=== PATIENT | male | born 1945 | race Caucasian/White ===

== ENCOUNTER 2017-10-18 01:13 | Emergency (ER) | payer MEDICARE ==
[2017-10-18 02:58] LABS: Bilirubin Negative (Negative); Blood, Urine Negative (Negative); Clarity CLOUDY (Clear); Glucose, Urine (Dipstick) Negative (Negative); Leukocyte Negative (Negative); Nitrite Negative (Negative); Protein, Urine (Dipstick) Trace mg/dL (Neg-Trace); Urobilinogen 0.2 mg/dL (0.2-1.0)
[2017-10-18 03:07] LABS: ALT (SGPT) 21 U/L (8-55); AST (SGOT) 19 U/L (5-34); Albumin 4.1 g/dL (3.4-4.8); Alkaline Phosphatase 100 U/L (40-150); Anion Gap 10 mmol/L (10-20); BUN (Urea Nitrogen) 14 mg/dL (8.4-25.7); Bilirubin, Total 0.4 mg/dL (0.2-1.2); Calc. Creatinine Clearance 0 mL/min (70-130); Calcium 9.4 mg/dL (7.8-10.44); Carbon Dioxide 27 mmol/L (23-31); Chloride 102 mmol/L (98-107); Estimated GFR-MDRD 73; Globulin 3.2 g/dL (2.4-3.5); Glucose 128 mg/dL (80-115); Potassium 4.3 mmol/L (3.5-5.1); Protein, Total 7.3 g/dL (5.8-8.1); Sodium 135 mmol/L (136-145)
[2017-10-18 03:08] LABS: #Lymphocytes 1.1 thou/uL (1.20-3.40); #Monocytes 0.8 thou/uL (0.11-0.59); #Neutrophils 9.8 thou/uL (1.40-6.50); %Basophils 0.3 % (0.0-1.0); %Eosinophils 0.4 % (0.0-10.0); %Lymphocytes 9.2 % (21.0-51.0); %Monocytes 6.4 % (0.0-10.0); %Neutrophils 83.7 % (42.0-75.0); Hemoglobin 15.2 g/dL (14.0-18.0); Mean Corpuscular HGB CONC 33.2 g/dL (32.0-36.0); Mean Corpuscular Hemoglobin 28.6 pg (27.0-31.0); Mean Corpuscular Volume 86.1 fl (80.0-94.0); Mean Platelet Volume 8.3 fL (7.4-10.4); Platelet Count 247 thou/uL (130-400); White Blood Cell (WBC) Count 11.7 thou/uL (4.8-10.8)
[2017-10-18 03:12] LABS: CKMB 2.5 ng/mL (0-6.6); Troponin I Less than 0.010 ng/mL (< 0.028)
--- NOTE | 2017-11-14 14:22 | EKG ---
Test Reason : Blood Pressure : / mmHG Vent. Rate : 078 BPM Atrial Rate : 078 BPM P-R Int : 168 ms QRS Dur : 086 ms QT Int : 350 ms P-R-T Axes : 047 009 023 degrees QTc Int : 399 ms Normal sinus rhythm Normal ECG Confirmed by MICHELLE KERNS M.D. ([id number]), photo editor RADHA LUTZ ([id number]) on 11/14/2017 2:21:25 PM Referred By: Confirmed By:MICHELLE KERNS M.D.
== END 2017-10-18 04:19 | disposition home or self-care (01) ==
LOC: ERS 01:13
DX: R11.2 Nausea with vomiting, unspecified (principal); R19.7 Diarrhea, unspecified; I10 Essential (primary) hypertension; F03.90 Unspecified dementia, unspecified severity, without behavioral disturbance, psychotic disturbance, mood disturbance, and anxiety; Z79.899 Other long term (current) drug therapy
CPT/HCPCS: 36415; 80053; 81003; 82553; 84484; 85025; 93005

== ENCOUNTER 2017-10-19 02:28 | Inpatient (IN) | payer MEDICARE ==
[2017-10-19] MEDS ORDERED: Metoclopramide HCl 10 MG/2 ML VIAL ONE (02:43)
[2017-10-19] MEDS ORDERED: diphenhydrAMINE 50 MG/ML VIAL ONE (03:36)
[2017-10-19 03:49] LABS: Hemoglobin 16.6 g/dL (14.0-18.0); Mean Corpuscular HGB CONC 33.6 g/dL (32.0-36.0); Mean Corpuscular Hemoglobin 28.8 pg (27.0-31.0); Mean Corpuscular Volume 85.6 fl (80.0-94.0); Platelet Count 292 thou/uL (130-400); RBC Distribution Width 13.3 % (11.5-14.5); Red Blood Cell (RBC) Count 5.78 mill/uL (4.70-6.10); White Blood Cell (WBC) Count 15.2 thou/uL (4.8-10.8)
[2017-10-19 04:02] LABS: CKMB 5.7 ng/mL (0-6.6); Troponin I 0.017 ng/mL (< 0.028)
[2017-10-19 04:22] LABS: ALT (SGPT) 30 U/L (8-55); AST (SGOT) 26 U/L (5-34); Albumin 4.7 g/dL (3.4-4.8); Alkaline Phosphatase 110 U/L (40-150); Anion Gap 19 mmol/L (10-20); BUN (Urea Nitrogen) 32 mg/dL (8.4-25.7); Band 15 % (5-11); Bilirubin, Total 0.7 mg/dL (0.2-1.2); Calc. Creatinine Clearance 0 mL/min (70-130); Calcium 9.9 mg/dL (7.8-10.44); Carbon Dioxide 22 mmol/L (23-31); Chloride 99 mmol/L (98-107); Estimated GFR-MDRD 32; Globulin 3.8 g/dL (2.4-3.5); Glucose 145 mg/dL (80-115); Lipase 7 U/L (8-78); Lymphocytes 7 % (21-51); MDiff Complete? YES; Magnesium 2.5 mg/dL (1.6-2.6); Monocytes 18 % (0-10); Neutrophil 60 % (42-75); Potassium 4.2 mmol/L (3.5-5.1); Protein, Total 8.5 g/dL (5.8-8.1); Sodium 136 mmol/L (136-145)
[2017-10-19] MEDS ORDERED: Ondansetron HCl/PF 4 MG/2 ML Vial IVP PRN (05:06)
[2017-10-19 05:11] LABS: Bilirubin Small (Negative); Blood, Urine Negative (Negative); Clarity CLEAR (Clear); Glucose, Urine (Dipstick) Negative (Negative); Leukocyte Negative (Negative); Nitrite Negative (Negative); Protein, Urine (Dipstick) 30 mg/dL (Neg-Trace); Urobilinogen 0.2 mg/dL (0.2-1.0); pH, Urine 5.5 (5.0-9.0)
[2017-10-19 05:14] LABS: Bacteria/HPF None Seen HPF (None Seen); Squamous Epithelial 0-3 HPF (0-3); WBC/HPF 0-3 HPF (0-3)
[2017-10-19] MEDS ORDERED: Sodium Chloride 0.9% 1,000 ML IV SCH ×2 (05:15→08:25)
[2017-10-19 05:16] LABS: Pathc Cast-AUWi Flag 6.77 (0-2.49)
[2017-10-19 05:21] LABS: Specific Gravity, Urine 1.055 (1.002-1.036)
[2017-10-19 05:28] LABS: Manual Microscopic Reviewed? No Path Casts Seen
[2017-10-19 07:23] VITALS: BMI 33.3
[2017-10-19] MEDS ORDERED: hydrALAZINE 20 MG/ML VIAL SLOW IVP PRN (08:24)
[2017-10-19] MEDS ORDERED: Lorazepam 2 MG/ML VIAL SLOW IVP PRN (08:24)
[2017-10-19] MEDS: Famotidine/PF 20 mg/2ml Vial SLOW IVP SCH (08:49)
--- NOTE | 2017-10-19 09:15 | RAD ---
ABDOMEN 1 VIEW: COMPARISON: None. HISTORY: Pain. FINDINGS: Nonspecific bowel gas pattern. There is contrast in the bladder. No obvious pneumoperitoneum on the supine projection. Please refer to CT performed earlier on 10/19/17 for further detail. Chronic changes of the lumbar spine are suspected. Prominent fluid-filled loops of small bowel noted on recent CT are difficult to appreciate. There are a few nonspecific air-filled loops of small bow el in the left hemiabdomen. The tip of what is presumed to be a nasogastric tube is identified. IMPRESSION: 1. Nonspecific bowel gas pattern. Prominent fluid-filled loops of small bowel noted on recent CT ar e difficult to appreciate on the current exam. 2. Partially visualized radiodensity which is presumed to be the nasogastric tube. POS: [facility]
--- NOTE | 2017-10-19 09:39 | CT ---
PRELIMINARY REPORT/[facility]/EMERGENCY AFTER HOURS PROCEDURE: EXAM: CT Abdomen and Pelvis With Intravenous Contrast EXAM DATE/TIME: Exam ordered 10/19/2017 3:45 AM CLINICAL HISTORY: 71 years old, male; Pain; Abdominal pain; Generalized TECHNIQUE: Axial computed tomography images of the abdomen and pelvis with intravenous contrast. Coronal reformatted images were created and reviewed. CONTRAST: 100 mL of ISOVU administered intravenously. COMPARISON: No relevant prior studies available. FINDINGS: Lower thorax: There is subpleural atelectasis of the dependent portions of the lungs. ABDOMEN: Liver: There are no focal liver lesions identified. Gallbladder and bile ducts: The gallbladder is normal. There is no evidence of biliary ductal dilatio n. No calcified stones. Pancreas: The pancreas appears normal. No ductal dilation. Spleen: The spleen is normal. Adrenals: The adrenal glands are normal. Kidneys and ureters: The kidneys appear normal. No hydronephrosis. Stomach and bowel: There is dilatation of the small bowel up to 3.5 cm with abrupt collapse in the mi d pelvis consistent with complete small bowel obstruction. The stomach is normal. The colon is normal . No mucosal thickening. Appendix: No findings to suggest acute appendicitis. PELVIS: Bladder: The bladder is normal. Reproductive: The prostate gland and seminal vesicles are normal. ABDOMEN and PELVIS: Intraperitoneal space: Normal. No free air. No significant fluid collection. Bones/joints: There is RIGHT hip arthroplasty. The spine demonstrates moderate degenerative changes a t multiple levels. No acute fracture. No dislocation. Soft tissues: Normal. Vasculature: Normal. No abdominal aortic aneurysm. Lymph nodes: Normal. No enlarged lymph nodes. IMPRESSION: There is dilatation of the small bowel up to 3.5 cm with abrupt collapse in the mid pelvis consistent with complete small bowel obstruction. Thank you for allowing us to participate in the care of your patient. Dictated and Authenticated by: Julio Cesar Faustin MD 10/19/2017 4:39 AM Central Time ([place] & [place]) FINAL REPORT CT ABDOMEN AND PELVIS WITH IV CONTRAST: I agree with the preliminary report given by Dr. Julio Cesar Faustin of [facility]. POS: [facility]
[2017-10-19] MEDS ORDERED: ISOVUE-370 76%-LOCM 1 ML ONE (13:19)
--- NOTE | 2017-10-19 13:36 | CON ---
DATE OF CONSULTATION: 10/19/2017 REQUESTING PHYSICIAN: Nancie Lee M.D. HISTORY OF PRESENT ILLNESS: This is a 71-year-old man who presented with insidious onset m ultiple episodes of nausea and large volume emesis. This started 2 days ago. At onset, the patient had both emesis and loose bowel movement. This was then followed by multiple recurrent episodes of nausea and emesis. The patient had some vague abdominal pain, which was transient in nature. He denied any fevers or chills. He was evaluated in the Emergency Department with a CT scan of the abdomen and pelvis, which was sugg estive of a complete small-bowel obstruction. The patient was referred to General Surgery Service. At the time of my evaluation, the patient is awake and alert. A nasogastric tube was placed on this admission and has returned less than 500 mL of bilious effluent . PAST MEDICAL HISTORY: Pertinent for plasmacytoma and bladder carcinoma for which patient received ra diation therapies at various times. Other pertinent past medical history includes essential hypertension and senile dementia of Alzheimer 's type. SURGICAL HISTORY: Pertinent for right hip arthroplasty and previous cystoscopy. SOCIAL HISTORY: The patient is and lives at home with his . 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 The patient admits to occasional intake of ethanol in very moderate amount. He denies any cigarette smoking or illicit drug abuse. FAMILY HISTORY: Noncontributory for this patient's age. PRE-HOSPITALISATION MEDICATIONS: Include vitamin B12 1000 mcg p.o. daily, amlodipine 10 mg p.o. terrie y, donepezil 10 mg p.o. q.p.m., folic acid 1 mg p.o. daily and Namenda 10 mg p.o. b.i.d. ALLERGIES: The patient denies any known drug allergies. REVIEW OF SYSTEMS: Ten-point review of systems essentially unremarkable except for as stated in past medical history and chief complaint. PHYSICAL EXAMINATION: GENERAL: Reveals a 71-year-old normally developed man who is otherwise interactive and appears to be in no acute distress. VITAL SIGNS: Includes blood pressure 126/85, pulse 76, respiration rate 18, temperature 98.1 degrees Fahrenheit and oxygen saturation 98% on room air. HEENT: Reveals normocephalic and atraumatic. Pupils are equal, round, and reactive to light and acc ommodation. Extraocular muscles are intact bilaterally. No sclerae icterus is present. HEART: Reveals regular rate and rhythm. No murmurs or gallops auscultated. LUNGS: Clear to auscultation bilaterally. Breathing regular and unlabored. ABDOMEN: Soft, nontender and nondistended. Bowel sounds in all four quadrants appear normoactive. Liver and spleen are nonpalpable below costal margins. EXTREMITIES: Reveals 2+ radial and pedal pulses bilaterally. No ankle edema is present. NEUROLOGIC: Reveals no focal deficits present. PERTINENT LABORATORY FINDINGS: Includes CBC today with 15,200 white blood cells, hemoglobin 16.6, he matocrit is 49.5 and platelet count is 292,000. Differential counts as follows, 60% segmented neutrophils, 15 bands, 7 lymphocytes and 18 monocytes. Metabolic profile: Sodium 136, potassium is 4.2, chloride is 99, bicarbonate is 22, BUN is 32, creat inine is 2.08, glucose is 145, magnesium is 2.5, total bilirubin is 0.7, AST and ALT normal at 26 and 30 respectively. Serum lipase is 7. IMAGING DATA: I did review the CT scan of the abdomen and pelvis, which revealed multiple distended loops of small bowel. There is gas in the colon and rectum. IMPRESSION: Acute partial small-bowel obstruction versus adynamic ileus secondary to gastroenteritis . PLAN: 1. Continue nasogastric tube decompression with bowel rest. 2. We will initiate acute small bowel follow through to define the anatomy of the obstruction if pre sent. 3. There is no acute surgical indication for this patient at this time. 4. General Surgery will follow along and make further recommendations as necessary. Above findings and plan discussed with the patient and his at bedside. They both indicated understanding of information given. I answered their questions. Thank you again, Dr. Canada for allowing me the opportunity to participate in the care of this patie nt.
--- NOTE | 2017-10-19 14:12 | RAD ---
SMALL BOWEL FOLLOW-THROUGH: INDICATIONS: Concern for small bowel obstruction. FINDINGS: There is Gastrografin contrast seen filling loops of small bowel, which are not dilated. Contrast op acification is seen within the right hemicolon by the 20-minute to 30-minute time som. A small dive rticula is seen off the third part stage of the duodenum. IMPRESSION: No small bowel obstruction demonstrated. POS: [facility]
[2017-10-19] MEDS: Dextrose 5 %-0.45 % NaCl 1,000 ML IV SCH (17:51)
--- NOTE | 2017-10-19 18:59 | HP ---
PRIMARY CARE PHYSICIAN: None. PRESENTING COMPLAINT: Vomiting. HISTORY OF PRESENT ILLNESS: Mr. Jay Fortune is a 71-year-old male with a past medical history of plasmacytoma, hypertension, dementia, who presented to the emergency room with a 2-day history of vomiting. He reports multiple episodes that with dark, foul smelling odor, it was nonbloody. He also reports inability to pass gas and has had no bowel movements in this time. This has been associated with generalized weakness and a constant epigastric abdominal pain rated 5/10, it does not radiate and occurs during his vomiting episodes. He has no hematochezia. No hematemesis. There is no diarrhea or constipation. There is no fever or chills. He denies chest pain, shortness of breath, PND, orthopnea, palpitations or lower extremity edema. PAST MEDICAL HISTORY: Hypertension, plasmacytoma, and dementia. PAST SURGICAL HISTORY: Right hip replacement. FAMILY HISTORY: Reviewed and noncontributory. SOCIAL HISTORY: , does not smoke or drink alcohol or use illicit drugs. ALLERGIES: None. REVIEW OF SYSTEMS: GENERAL: Negative. HEENT: Negative. RESPIRATORY: Negative. CARDIOVASCULAR: Negative for chest pain, shortness of breath. ABDOMEN: Per HPI. MUSCULOSKELETAL: Negative. SKIN: Negative. ALLERGY/IMMUNOLOGY: Negative. PSYCHIATRIC: Negative. NEUROLOGY: Negative. HEMATOLOGIC: Negative. MUSCULOSKELETAL: Negative. PHYSICAL EXAMINATION: VITAL SIGNS: Stable. GENERAL: Not in acute distress, sitting comfortably in bed. HEENT: Normocephalic, atraumatic. NG tube in place. NECK: Supple, EOMI, PERRLA. Dry mucous membranes. RESPIRATORY: Vesicular breath sounds present bilaterally. No wheezes or rales. CARDIOVASCULAR: S1 and S2 only. No murmurs, rubs or gallops. SKIN: Warm and well-perfused. No rashes or lesions. ABDOMEN: Bowel sounds hypoactive, not distended, not tender. No organomegaly. MUSCULOSKELETAL: Moves all extremities spontaneously. No skeletal abnormalities. NEUROLOGIC: Alert and oriented to time and place. No focal deficits. PSYCHIATRIC: Normal mood and affect. LABORATORY DATA: Significant for leukocytosis (15,000). Chemistry significant for elevated BUN/creatinine of 32/2.08. Troponin x1 less than 0.017. IMAGING: CT abdomen/pelvis, this revealed dilatation of the small bowel up to 3.5 cm with abrupt collapse in the mid pelvis consistent with complete small- bowel obstruction. Abdomen x-ray showed nonspecific bowel gas pattern with prominent fluid-filled loops of small bowel noted on CT, difficult to appreciate on current exam. Follow up small bowel x-ray with contrast showed no small-bowel obstruction demonstrated. ASSESSMENT AND PLAN: 1. Vomiting ongoing concerning for possible small-bowel obstruction. He is currently n.p.o., has been started on IV fluids and General Surgery consulted. An NG tube has also been placed. We will follow surgical recommendations. 2. Hypertension, relatively well controlled. Since patient is n.p.o., we will place patient on p.r.n. medications for systolic blood pressure greater than 180. 3. Acute kidney injury, likely prerenal acute kidney injury due to volume depletion (the patient has had multiple vomiting episodes). We will hydrate and monitor creatinine. 4. Leukocytosis. This is likely from his possible small-bowel obstruction likely from an ongoing infection. We will hydrate and recheck WBC in the morning. 5. Dementia: Continue home meds. CODE STATUS: FULL resuscitation. PROPHYLAXIS: Heparin. MTDD
--- NOTE | 2017-10-19 21:49 | PRG ---
DATE OF SERVICE: 10/19/2017 SUBJECTIVE: This is a 71-year-old gentleman who is seen in consultation by our team earlier today fo r concerns for small bowel obstruction. He had a small bowel follow through, which was negative for obstructive lesion. Since that time, the patient has had multiple bowel movements. He had no furthe r nausea or vomiting. His NG tube was removed and he was started on clear liquid diet. Upon my eval uation, the patient vocalized no complaint. He is tolerating his diet at this time. OBJECTIVE: VITAL SIGNS: Reviewed and stable. GENERAL: The patient is sitting in chair out of bed. LUNGS: Breathing is nonlabored. ABDOMEN: Soft, nontender, nondistended. NG tube has been removed. ASSESSMENT AND PLAN: As documented in consultation note. Continue care as ordered. Continue to mon itor. The patient continues to tolerate clear liquid diet. We will advance to full liquids and adva nce to tolerate that for tomorrow.
[2017-10-20] MEDS: Dextrose 5 %-0.45 % NaCl 1,000 ML IV SCH (05:26)
[2017-10-20 05:37] LABS: Band 4 % (5-11); Eosinophils 2 % (0-10); Hemoglobin 13.3 g/dL (14.0-18.0); Lymphocytes 22 % (21-51); MDiff Complete? YES; Mean Corpuscular HGB CONC 32.8 g/dL (32.0-36.0); Mean Corpuscular Hemoglobin 28.3 pg (27.0-31.0); Mean Corpuscular Volume 86.1 fl (80.0-94.0); Mean Platelet Volume 8.2 fL (7.4-10.4); Monocytes 14 % (0-10); Neutrophil 58 % (42-75); Platelet Count 218 thou/uL (130-400); RBC Distribution Width 13.3 % (11.5-14.5); Red Blood Cell (RBC) Count 4.71 mill/uL (4.70-6.10); White Blood Cell (WBC) Count 7.3 thou/uL (4.8-10.8)
[2017-10-20 06:17] LABS: Anion Gap 7 mmol/L (10-20); BUN (Urea Nitrogen) 27 mg/dL (8.4-25.7); Calc. Creatinine Clearance 107 mL/min (70-130); Calcium 8.4 mg/dL (7.8-10.44); Carbon Dioxide 27 mmol/L (23-31); Chloride 104 mmol/L (98-107); Estimated GFR-MDRD 73; Glucose 104 mg/dL (80-115); Potassium 3.4 mmol/L (3.5-5.1); Sodium 135 mmol/L (136-145)
[2017-10-20] MEDS ORDERED: Potassium Chloride 20 MEQ TAB PO SCH (08:30)
[2017-10-20] MEDS: Famotidine/PF 20 mg/2ml Vial SLOW IVP SCH (08:39)
[2017-10-20] MEDS ORDERED: Acetaminophen 325 MG TAB PO PRN (10:20)
[2017-10-20 11:47] VITALS: BP 126/85; TEMP 98.3
--- NOTE | 2017-10-20 16:45 | DIS ---
DATE OF ADMISSION: 10/19/2017 DATE OF DISCHARGE: 10/20/2017. DISCHARGE DIAGNOSES: Vomiting, hypertension, acute kidney injury, leukocytosis, dementia. SECONDARY DIAGNOSES: Hypertension, acute kidney injury, leukocytosis, dementia. HISTORY OF PRESENT ILLNESS AND HOSPITAL COURSE: Mr. Jay Fortune is a 71-year-old male with a his tory of plasmacytoma, hypertension, dementia, who presented to the emergency room with a 2-day histor y of vomiting. He reported multiple episodes with dark foul smelling odor, nonbloody. He also was u nable to pass gas and has had normal bowel movement for 2 days. It was associated with generalized w eakness and constant epigastric pain rated 5/10, did not radiate and no cause during vomiting episode s. No hematochezia or hematemesis. No diarrhea or constipation. No fevers or chills. No chest misty n, shortness of breath, PND, orthopnea, palpitations, lower extremity edema. His labs were largely u nremarkable and he had a CT abdomen, which showed and suggested possible obstruction with dilatation of small-bowel up to 3.5 cm and abrupt collapse in the mid pelvis consistent with small-bowel obstruc tion, complete. General Surgery was consulted. He was started with a nasogastric tube insertion and made n.p.o. with IV fluids for parenteral nutrition. General Surgery was consulted. On review of h im, he had abdominal series with follow through, which was negative for obstruction. The NG tube was then removed. His diet was advanced slowly and he was started on his home medications. On the day of discharge, he felt well and was able to tolerate diet. He had had a few bowel movements as well. He was then deemed stable for discharge. DISCHARGE MEDICATIONS: Donepezil 10 mg every evening, amlodipine 10 mg daily, acetaminophen 650 mg e very 4 hours as needed for pain, folic acid 1 mg daily, memantine 10 mg twice a day, cyanocobalamin 1 000 mg daily. PHYSICAL EXAMINATION: He was examined on the day of discharge, his vital signs were stable. CONSTITUTIONAL: Not in acute distress, lying comfortably in bed. HEENT: Normocephalic, atraumatic. NG tube has been removed and patient is comfortable. NECK: Supple, EOMI, PERRLA. Moist mucous membranes. RESPIRATORY: Vesicular breath sounds bilaterally. No wheezes or rales. CARDIOVASCULAR: S1, S2 only. No murmurs, rubs or gallops. SKIN: Warm, dry, well perfused. No rashes or lesions. ABDOMEN: Bowel sounds present, nontender, nondistended, no organomegaly. MUSCULOSKELETAL: Moves all extremities spontaneously. No abnormalities. NEUROLOGIC: Alert and oriented to person and place. No focal deficits. PSYCHIATRIC: Normal mood and affect. LABORATORY DATA: WBC 7.3, hemoglobin 13.3, platelet 218. Sodium 135, potassium 3.4, chloride 104, c arbon dioxide 27, anion gap 7, BUN 27, creatinine 101. IMAGING: CT abdomen results as above. Abdominal series negative for obstruction. Consult General S urgery CONDITION AT DISCHARGE: Stable and improved. PROCEDURES: None. DIET: Heart healthy. CARE GOALS. He is to follow up with his primary care physician within 1 week of discharge. ACTIVITY: To resume as tolerated. DISCHARGE TIME: 65 minutes including chart review and documentation.
--- NOTE | 2017-10-20 16:51 | PRG ---
DATE OF SERVICE: 10/20/2017 SUBJECTIVE: Mr. Fortune seen at bedside with his . The patient denies any abdominal pain. He is tolerating clear liquid diet and is having multiple loose bowel movements. Denies any fevers or c hills. OBJECTIVE: VITAL SIGNS: Today includes blood pressure 126/85, pulse 73, respiratory rate 20, temperature 98.3 d egrees Fahrenheit, and oxygen saturation 94% on room air. HEENT: Reveals normocephalic and atraumatic. HEART: Reveals regular rate and rhythm, no murmurs or gallops auscultated. LUNGS: Clear to auscultation bilaterally. Breathing regular and unlabored. ABDOMEN: Soft, nontender and nondistended. Bowel sounds in all four quadrants appear normoactive. NEUROLOGIC: Reveals no focal deficits present. LABORATORY STUDIES: Includes a CBC with 7300 white blood cells, hemoglobin and hematocrit stable at 13.3 and 40.6 respectively. Platelet count 218,000. Metabolic profile: Sodium is 135, potassium is 3.4, chloride is 104, bicarbonate is 27, BUN is 27, creatinine is 1.01 and glucose is 104. IMPRESSION: Resolved acute small-bowel obstruction. PLAN: There remains no acute surgical indication for this patient at this time. Diet will be advanced to a general and the patient could be discharged from Surgery standpoint if irish erating a regular diet. He requires no further followup from this Surgery Service.
[2017-10-20] MEDS ORDERED: Donepezil HCl 10 MG TAB PO SCH (21:00)
[2017-10-21] MEDS ORDERED: Potassium Chloride 20 MEQ TAB PO SCH (08:00)
[2017-10-21] MEDS ORDERED: Amlodipine 5 MG TAB PO SCH (09:00)
[2017-10-21] MEDS ORDERED: Amlodipine 10 MG TAB PO SCH (09:00)
[2017-10-21] MEDS ORDERED: Cyanocobalamin (Vitamin B-12) 1,000 MCG TAB PO SCH (09:00)
[2017-10-21] MEDS ORDERED: Folic Acid 1 MG TAB PO SCH (09:00)
== END 2017-10-20 15:15 | disposition home or self-care (01) | DRG 684 ==
LOC: ERS 02:28 → T4-A 05:04
PROVIDERS: ADMIT Hospitalist; ATTEND Hospitalist
DX: N17.9 Acute kidney failure, unspecified (principal); G30.1 Alzheimer's disease with late onset; E86.9 Volume depletion, unspecified; F02.80 Dementia in other diseases classified elsewhere, unspecified severity, without behavioral disturbance, psychotic disturbance, mood disturbance, and anxiety; R11.2 Nausea with vomiting, unspecified; I10 Essential (primary) hypertension; D72.829 Elevated white blood cell count, unspecified; Z85.51 Personal history of malignant neoplasm of bladder; Z85.79 Personal history of other malignant neoplasms of lymphoid, hematopoietic and related tissues; K52.9 Noninfective gastroenteritis and colitis, unspecified
CPT/HCPCS: 36415; 74018; 74177; 74250; 80048; 80053; 81003; 81015; 82553; 83690; 83735; 84484; 85025; 93005; 96360; 96361; 96374; 96375; J1200; J2765; S0028

== ENCOUNTER 2018-03-05 12:09 | Outpatient (CLI) | payer MEDICARE ==
--- NOTE | 2018-03-05 12:48 | CT ---
CT HEAD WITHOUT CONTRAST: Multiple axial tomograms are obtained through the head without IV enhancement. HISTORY: Dementia. Headache. COMPARISON: Comparison is made to a prior head CT dated March 2014. FINDINGS: A mild amount of cortical atrophy is again noted. The ventricles have normal size and position. No evidence of mass or edema. No evidence of infarct. No significant white matter abnormality. No sig nificant interval change. Sinuses and mastoids are well aerated. IMPRESSION: Mild cortical atrophy. Exam otherwise unremarkable and unchanged. POS: [facility]
== END 2018-03-05 12:10 | disposition home or self-care (01) ==
LOC: CT 12:09
PROVIDERS: ATTEND Family Medicine
DX: F03.90 Unspecified dementia, unspecified severity, without behavioral disturbance, psychotic disturbance, mood disturbance, and anxiety (principal); R51 Headache; G31.9 Degenerative disease of nervous system, unspecified
CPT/HCPCS: 36415; 70450; 80053; 85025

== ENCOUNTER 2020-07-13 08:55 | Emergency (ER) | payer MEDICARE, MEDICAID ==
--- NOTE | 2020-07-13 09:56 | CT ---
Exam: CT cervical spine without contrast HISTORY: Trauma. Pain. COMPARISON: 04/17/2020 FINDINGS: No craniocervical dissociation. Appropriate alignment of the lateral masses of C1 and C2. Intact odon toid process Appropriate alignment of the facets. Stable bridging anterior osteophyte at C3 3-C4. Stable vacuum disc phenomenon at C3 5-C6 and C6-7. Soft tissue neck structures: No mass, lymphadenopathy or hematoma. No prevertebral soft tissue swelli ng. Upper mediastinum and lung apices: Unremarkable Central spinal canal: Varying degrees of central canal stenosis and foraminal narrowing on the basis of degenerative change Vertebral bodies: Cervical spine vertebral body height is maintained. No fracture. IMPRESSION: 1. No fracture 2. Stable multilevel degenerative changes of the cervical spine.
--- NOTE | 2020-07-13 09:59 | CT ---
CT BRAIN WITHOUT CONTRAST: HISTORY: Trauma. Fall. Severe Alzheimer's dementia. COMPARISON: 04/17/2020. FINDINGS: Changes of cortical atrophy are again seen. The ventricular size is stable and the basilar cisterns patent. No evidence of acute infarct, hemorrhage, midline shift, or abnormal extraaxial fluid collec tions is seen. The bony calvarium is intact. The visualized paranasal sinuses and mastoid air cells are well aerated. IMPRESSION: No CT evidence of acute intracranial process. POS: [facility]
== END 2020-07-13 12:31 | disposition home or self-care (01) ==
LOC: ERS 08:55
DX: U07.1 COVID-19 (principal); S06.0X9A Concussion with loss of consciousness of unspecified duration, initial encounter; I10 Essential (primary) hypertension; G30.9 Alzheimer's disease, unspecified; F02.80 Dementia in other diseases classified elsewhere, unspecified severity, without behavioral disturbance, psychotic disturbance, mood disturbance, and anxiety; Z79.899 Other long term (current) drug therapy; W18.30XA Fall on same level, unspecified, initial encounter; Y92.129 Unspecified place in nursing home as the place of occurrence of the external cause
CPT/HCPCS: 70450; 72125

== ENCOUNTER 2020-08-09 19:51 | Emergency (ER) | payer MEDICARE, MEDICAID ==
[2020-08-09 20:53] LABS: Bacteria/HPF None Seen HPF (None Seen); Bilirubin Negative (Negative); Blood, Urine Negative (Negative); Clarity Clear (Clear); Glucose, Urine (Dipstick) Normal (Negative); Ketone, Urine Negative (Negative); Leukocyte Negative Leu/uL (Negative); Mucous/LPF Rare LPF (<2+); Nitrite Negative (Negative); Protein, Urine (Dipstick) 50 mg/dL (Neg-Trace); Specific Gravity, Urine 1.035 (1.002-1.036); Squamous Epithelial None Seen HPF (0-3); Urobilinogen 6 mg/dL (Less than 2); WBC/HPF 0-3 HPF (0-3)
--- NOTE | 2020-08-09 20:55 | CT ---
CT OF CERVICAL SPINE PERFORMED WITHOUT CONTRAST ENHANCEMENT: 08/09/20 HISTORY: Fall with neck injury. FINDINGS/IMPRESSION: The vertebral bodies are normal in height. Disc narrowing is seen at the C3-4, C5-6 and C6-7 levels. There are prominent degenerative facet changes. The facets are in normal alignment. There is bony fus ion at the C3-4 level. There is no significant foraminal stenosis. Mild right sided foraminal narrowi ng at the C5-6 level and more pronounced left sided foraminal narrowing. Also moderately severe left sided foraminal narrowing at C6-7. There is no CT evidence for fracture. The lung apices are clear. POS: [facility]
[2020-08-09 20:58] LABS: RBC/HPF 0-3 HPF (0-3)
--- NOTE | 2020-08-09 21:44 | CT ---
CT OF BRAIN PERFORMED WITHOUT CONTRAST ENHANCEMENT: 08/09/20 HISTORY: Fall with head injury. COMPARISON: 07/13/20 exam. There is marked atrophy present. There is no signs of intracerebral hemorrhage or extra-axial fluid c ollections. Mastoid air cells are clear. The visualized sinuses are clear. IMPRESSION: No acute intracranial abnormality. POS: [facility]
[2020-08-09 21:58] LABS: Anion Gap 15 mmol/L (10-20); BUN (Urea Nitrogen) 15 mg/dL (8.4-25.7); Calc. Creatinine Clearance 0 mL/min (70-130); Calcium 8.4 mg/dL (7.8-10.44); Carbon Dioxide 27 mmol/L (23-31); Chloride 100 mmol/L (98-107); Glucose 107 mg/dL (83-110); Potassium 3.7 mmol/L (3.5-5.1); Sodium 138 mmol/L (136-145)
[2020-08-09 22:09] LABS: Eosinophils 1 % (0-10); Hemoglobin 13.5 g/dL (14.0-18.0); Lymphocytes 16 % (21-51); MDiff Complete? YES; Mean Corpuscular HGB CONC 32.8 g/dL (32.0-36.0); Mean Corpuscular Hemoglobin 29.6 pg (27.0-31.0); Mean Corpuscular Volume 90.1 fL (78.0-98.0); Mean Platelet Volume 8.8 fL (7.4-10.4); Monocytes 14 % (0-10); Neutrophil 69 % (42-75); Platelet Count 148 thou/uL (130-400); Platelet Morphology Comment Appears Adequate; Red Blood Cell (RBC) Count 4.56 mill/uL (4.70-6.10); White Blood Cell (WBC) Count 10.6 thou/uL (4.8-10.8)
== END 2020-08-09 23:30 ==
LOC: ERS 19:51
DX: S50.312A Abrasion of left elbow, initial encounter (principal); I10 Essential (primary) hypertension; G30.9 Alzheimer's disease, unspecified; F02.80 Dementia in other diseases classified elsewhere, unspecified severity, without behavioral disturbance, psychotic disturbance, mood disturbance, and anxiety; W06.XXXA Fall from bed, initial encounter
CPT/HCPCS: 36415; 51701; 70450; 72125; 80048; 81003; 81015; 85025; 93005

== ENCOUNTER 2020-08-18 21:45 | Emergency (ER) | payer MEDICARE, MEDICAID ==
[2020-08-18 22:18] LABS: #Basophils 0.1 thou/uL (0.0-0.2); #Eosinphils 0.2 thou/uL (0.0-0.7); #Lymphocytes 1.1 thou/uL (1.20-3.40); #Monocytes 0.7 thou/uL (0.11-0.59); #Neutrophils 4.7 thou/uL (1.40-6.50); %Basophils 0.8 % (0.0-1.0); %Eosinophils 2.4 % (0.0-10.0); %Lymphocytes 16.3 % (21.0-51.0); %Neutrophils 70.5 % (42.0-75.0); Hemoglobin 12.2 g/dL (14.0-18.0); Mean Corpuscular HGB CONC 32.4 g/dL (32.0-36.0); Mean Corpuscular Volume 89.6 fL (78.0-98.0); Mean Platelet Volume 7.3 fL (7.4-10.4); Platelet Count 249 thou/uL (130-400); RBC Distribution Width 12.7 % (11.5-14.5); Red Blood Cell (RBC) Count 4.22 mill/uL (4.70-6.10); White Blood Cell (WBC) Count 6.7 thou/uL (4.8-10.8)
--- NOTE | 2020-08-18 22:27 | RAD ---
EXAM: CHEST ONE VIEW HISTORY: Syncope. COMPARISON: 09/08/2014. FINDINGS: Cardiac silhouette is magnified by projection. Remainder vasculature is within normal limits. Loop re brice device again overlies the left mid chest. Lungs are clear. Degenerative changes are again seen in the spine. IMPRESSION: No acute cardiopulmonary process.
[2020-08-18 22:41] LABS: ALT (SGPT) 40 U/L (8-55); AST (SGOT) 30 U/L (5-34); Albumin 2.9 g/dL (3.4-4.8); Alkaline Phosphatase 89 U/L (40-110); Anion Gap 13 mmol/L (10-20); BUN (Urea Nitrogen) 7 mg/dL (8.4-25.7); Bilirubin, Total 0.3 mg/dL (0.2-1.2); Calc. Creatinine Clearance 0 mL/min (70-130); Calcium 7.9 mg/dL (7.8-10.44); Carbon Dioxide 25 mmol/L (23-31); Chloride 103 mmol/L (98-107); Glucose 120 mg/dL (83-110); Potassium 3.1 mmol/L (3.5-5.1); Protein, Total 5.9 g/dL (5.8-8.1); Sodium 138 mmol/L (136-145)
[2020-08-19 00:24] LABS: Bilirubin Negative (Negative); Blood, Urine Negative (Negative); Clarity Clear (Clear); Glucose, Urine (Dipstick) Normal (Negative); Ketone, Urine Negative (Negative); Leukocyte Negative Leu/uL (Negative); Nitrite Negative (Negative); Protein, Urine (Dipstick) Negative (Neg-Trace); Specific Gravity, Urine 1.012 (1.002-1.036); Urobilinogen 3 mg/dL (Less than 2)
== END 2020-08-19 01:38 ==
LOC: ERS 21:45
DX: R55 Syncope and collapse (principal); I10 Essential (primary) hypertension; Z79.899 Other long term (current) drug therapy
CPT/HCPCS: 36415; 51701; 71045; 80053; 81003; 84484; 85025; 93005

== ENCOUNTER 2020-11-11 11:50 | Inpatient (IN) | payer MEDICARE, MEDICAID ==
[2020-11-11 13:42] LABS: #Basophils 0.1 thou/uL (0.0-0.2); #Eosinphils 0.2 thou/uL (0.0-0.7); #Monocytes 0.8 thou/uL (0.11-0.59); #Neutrophils 6.1 thou/uL (1.40-6.50); %Basophils 0.7 % (0.0-1.0); %Eosinophils 1.9 % (0.0-10.0); %Lymphocytes 12.4 % (21.0-51.0); %Monocytes 9.5 % (0.0-10.0); %Neutrophils 75.5 % (42.0-75.0); Hemoglobin 13.2 g/dL (14.0-18.0); Mean Corpuscular HGB CONC 33.3 g/dL (32.0-36.0); Mean Corpuscular Hemoglobin 30.9 pg (27.0-31.0); Mean Corpuscular Volume 92.7 fL (78.0-98.0); Mean Platelet Volume 8.2 fL (7.4-10.4); Platelet Count 188 thou/uL (130-400); RBC Distribution Width 13.7 % (11.5-14.5); Red Blood Cell (RBC) Count 4.28 mill/uL (4.70-6.10); White Blood Cell (WBC) Count 8.1 thou/uL (4.8-10.8)
[2020-11-11 14:00] LABS: ALT (SGPT) Less than 7 U/L (8-55); AST (SGOT) 12 U/L (5-34); Albumin 3.5 g/dL (3.4-4.8); Alkaline Phosphatase 88 U/L (40-110); Anion Gap 14 mmol/L (10-20); BUN (Urea Nitrogen) 16 mg/dL (8.4-25.7); Bilirubin, Total 0.4 mg/dL (0.2-1.2); Calc. Creatinine Clearance 0 mL/min (70-130); Calcium 8.1 mg/dL (7.8-10.44); Carbon Dioxide 22 mmol/L (23-31); Chloride 106 mmol/L (98-107); Globulin 2.7 g/dL (2.4-3.5); Glucose 91 mg/dL (83-110); Potassium 3.9 mmol/L (3.5-5.1); Protein, Total 6.2 g/dL (5.8-8.1); Sodium 138 mmol/L (136-145)
[2020-11-11 14:03] LABS: Acetaminophen Less than 6.0 mcg/mL (10.0-30.0); Alcohol Less than 10 mg/dL (Less than 10); Salicylate Less than 8.0 mg/dL (15.0-30.0)
[2020-11-11 14:14] LABS: Bacteria/HPF None Seen HPF (None Seen); Bilirubin Negative (Negative); Blood, Urine 1+ (Negative); Clarity Clear (Clear); Glucose, Urine (Dipstick) Normal (Negative); Ketone, Urine Negative (Negative); Leukocyte Negative Leu/uL (Negative); Nitrite Negative (Negative); Protein, Urine (Dipstick) Negative (Neg-Trace); RBC/HPF 21-50 HPF (0-3); Specific Gravity, Urine 1.016 (1.002-1.036); Squamous Epithelial None Seen HPF (0-3); Urobilinogen Normal mg/dL (Less than 2); WBC/HPF 0-3 HPF (0-3); pH, Urine 6.5 (5.0-9.0)
[2020-11-11] MEDS ORDERED: Senokot S 8.6-50 MG TAB PO PRN (15:15)
[2020-11-11] MEDS ORDERED: Acetaminophen 325 MG TAB PO PRN (15:15)
[2020-11-11] MEDS ORDERED: Ondansetron PF 4 MG/2 ML Vial IVP PRN (15:15)
[2020-11-11] MEDS ORDERED: Lorazepam 2 MG/ML VIAL ONE (17:21)
[2020-11-11 18:30] VITALS: BMI 26.8
[2020-11-11] MEDS: Sodium Chloride 0.9% 1,000 ML IV SCH (20:27)
[2020-11-12] MEDS: Sodium Chloride 0.9% 1,000 ML IV SCH ×2 (04:12→18:49)
[2020-11-12 04:48] LABS: Hemoglobin 13.4 g/dL (14.0-18.0); Mean Corpuscular HGB CONC 33.3 g/dL (32.0-36.0); Mean Corpuscular Hemoglobin 30.8 pg (27.0-31.0); Mean Corpuscular Volume 92.3 fL (78.0-98.0); Mean Platelet Volume 8.3 fL (7.4-10.4); Platelet Count 191 thou/uL (130-400); RBC Distribution Width 13.6 % (11.5-14.5); Red Blood Cell (RBC) Count 4.36 mill/uL (4.70-6.10); White Blood Cell (WBC) Count 6.5 thou/uL (4.8-10.8)
[2020-11-12] MEDS ORDERED: ALPRAZolam 0.5 MG TAB PO SCH (05:00)
[2020-11-12 05:03] LABS: ALT (SGPT) 13 U/L (8-55); AST (SGOT) 13 U/L (5-34); Albumin 3.5 g/dL (3.4-4.8); Alkaline Phosphatase 88 U/L (40-110); Anion Gap 13 mmol/L (10-20); BUN (Urea Nitrogen) 11 mg/dL (8.4-25.7); Bilirubin, Total 0.4 mg/dL (0.2-1.2); Calc. Creatinine Clearance 108 mL/min (70-130); Calcium 8.3 mg/dL (7.8-10.44); Carbon Dioxide 22 mmol/L (23-31); Chloride 105 mmol/L (98-107); Globulin 2.7 g/dL (2.4-3.5); Glucose 84 mg/dL (83-110); Potassium 3.8 mmol/L (3.5-5.1); Protein, Total 6.2 g/dL (5.8-8.1); Sodium 136 mmol/L (136-145)
[2020-11-12 05:53] LABS: Band 2 % (5-11); Eosinophils 2 % (0-10); Lymphocytes 20 % (21-51); MDiff Complete? YES; Monocytes 6 % (0-10); Neutrophil 69 % (42-75); Reactive Lymphocytes 1 % (0-10)
[2020-11-12] MEDS ORDERED: hydrALAZINE 20 MG/ML VIAL SLOW IVP PRN (08:14)
[2020-11-12] MEDS ORDERED: Calcium Carbonate 500 MG ChewTAB PO PRN (08:14)
[2020-11-12] MEDS ORDERED: Loperamide HCl 2 MG CAP PO PRN (08:14)
[2020-11-12] MEDS ORDERED: HYDROcodone/Acetaminophen 5/325 mg Tablet PO PRN (08:14)
[2020-11-12] MEDS ORDERED: Sodium Chloride 0.65% Nasal 44 ML BOT EA NARE PRN (08:14)
[2020-11-12] MEDS ORDERED: Zolpidem Tartrate 5 MG TAB PO PRN (08:14)
[2020-11-12] MEDS ORDERED: GUAIFENESIN SF SOLN 200 MG/10 ML UDCUP PO PRN (08:14)
[2020-11-12] MEDS ORDERED: Ondansetron ODT 4 MG TAB PO PRN (08:14)
[2020-11-12] MEDS ORDERED: Loratadine 10 MG TAB PO PRN (08:14)
[2020-11-12] MEDS ORDERED: Cepastat Lozenges 1 LOZ PO PRN (08:14)
[2020-11-12] MEDS ORDERED: Docusate 100 MG CAP PO PRN (08:15)
[2020-11-12] MEDS ORDERED: Acetaminophen 325 MG TAB PO PRN (08:21)
[2020-11-12] MEDS ORDERED: FLU VACC QS2020-21(65YR UP)/PF 240 MCG/0.7 ML SYRINGE IM ONE (09:00)
[2020-11-12] MEDS: OXcarbazepine 150 MG TAB PO SCH ×2 (09:42→22:58)
[2020-11-12] MEDS: Carbidopa/Levodopa 25-100 mg Tablet PO SCH ×3 (09:42→22:57)
[2020-11-12] MEDS: Amlodipine 5 MG TAB PO SCH (09:42)
[2020-11-12 10:39] LABS: Syphilis Antibody Nonreactive (Nonreactive); Syphilis Antibody Index 0.03 S/CO (<1.00 Non-Reactive)
[2020-11-12 10:46] LABS: Thyroid Stimulating Hormone 2.381 uIU/mL (0.35-4.94)
[2020-11-12] MEDS ORDERED: risperiDONE 1 MG TAB PO SCH (21:00)
[2020-11-12] MEDS ORDERED: Mirtazapine 15 MG TAB PO SCH (21:00)
[2020-11-12] MEDS ORDERED: Donepezil HCl 10 MG TAB PO SCH (21:00)
[2020-11-13] MEDS ORDERED: Cyanocobalamin (Vitamin B-12) 1,000 MCG TAB PO SCH (09:00)
[2020-11-13] MEDS ORDERED: Folic Acid 1 MG TAB PO SCH (09:00)
[2020-11-13] MEDS ORDERED: Multivitamin W/ Minerals 1 TAB PO SCH (09:00)
[2020-11-13] MEDS: OXcarbazepine 150 MG TAB PO SCH (10:01)
[2020-11-13] MEDS: Amlodipine 5 MG TAB PO SCH (10:02)
[2020-11-13] MEDS: Carbidopa/Levodopa 25-100 mg Tablet PO SCH ×2 (10:03→14:53)
[2020-11-13 13:20] VITALS: BP 102/58; TEMP 97.3
== END 2020-11-13 15:52 | DRG 92 ==
LOC: ERS 11:50 → 2NO 14:53
PROVIDERS: ADMIT Family Medicine; ATTEND Internal Medicine
DX: G92 Toxic encephalopathy (principal); F02.81 Dementia in other diseases classified elsewhere, unspecified severity, with behavioral disturbance; C90.30 Solitary plasmacytoma not having achieved remission; G30.9 Alzheimer's disease, unspecified; Z66 Do not resuscitate; T50.995A Adverse effect of other drugs, medicaments and biological substances, initial encounter; E53.8 Deficiency of other specified B group vitamins; R00.1 Bradycardia, unspecified; Z96.641 Presence of right artificial hip joint; T43.8X5A Adverse effect of other psychotropic drugs, initial encounter; Z28.21 Immunization not carried out because of patient refusal; Z85.51 Personal history of malignant neoplasm of bladder; Z79.899 Other long term (current) drug therapy; Z98.42 Cataract extraction status, left eye; Z98.41 Cataract extraction status, right eye
CPT/HCPCS: 36415; 36416; 70450; 71045; 80053; 80307; 81003; 81015; 82140; 82607; 82746; 83605; 84443; 84484; 85007; 85025; 85027; 86780; 87040; 87086; 93005; 95712; 95819; 95957; 96374; J0360; J2060